=== PATIENT | female | born 1955 | race Caucasian/White ===

== ENCOUNTER 2021-04-02 21:22 | Observation (INO) | payer MEDICARE, OTHER ==
[2021-04-02] MEDS ORDERED: SODIUM CHLORIDE 0.9% 500 ML 500 ML IV STA (21:36)
[2021-04-02] MEDS ORDERED: ONDANSETRON 4 MG/2 ML VIAL IVP STA (21:36)
[2021-04-02] MEDS ORDERED: PANTOPRAZOLE 40 MG/10 ML VIAL IVP STA (21:36)
[2021-04-02 22:38] LABS: Basophils % (A) 0 %; Eosinophils # (A) 0.1 k/uL (0-0.7); Eosinophils % (A) 1 %; HCT 41.3 % (34.0-46.0); HGB 13.9 gm/dL (11.4-16.0); Lymphocytes # (A) 3.2 k/uL (1.0-4.8); Lymphocytes % (A) 43 %; MCH 32.5 pg (25.0-35.0); MCHC 33.8 g/dL (31.0-37.0); MCV 96.2 fL (80.0-100.0); Mean Platelet Volume 8.3; Monocytes # (A) 0.4 k/uL (0-1.0); Monocytes % (A) 6 %; Neutrophils # (A) 3.7 k/uL (1.3-7.7); Neutrophils % (A) 49 %; Platelet Count 254 k/uL (150-450); RBC 4.29 m/uL (3.80-5.40); RDW 13.3 % (11.5-15.5); WBC 7.6 k/uL (3.8-10.6)
[2021-04-02 22:52] LABS: ALT 36 U/L (4-34); AST 42 U/L (14-36); African American GFR (CKD) >90 (>60 ml/min/1.73 sqM); Albumin 4.3 g/dL (3.5-5.0); Alkaline Phosphatase 115 U/L (38-126); Anion Gap 11 mmol/L; Blood Urea Nitrogen 10 mg/dL (7-17); Calcium 9.3 mg/dL (8.4-10.2); Carbon Dioxide 19 mmol/L (22-30); Chloride 109 mmol/L (98-107); Glucose 119 mg/dL (74-99); Lipase 148 U/L (23-300); Magnesium 1.9 mg/dL (1.6-2.3); Non-African American GFR(CKD) >90 (>60 ml/min/1.73 sqM); Sodium 139 mmol/L (137-145); Total Bilirubin 0.3 mg/dL (0.2-1.3); Total Protein 7.1 g/dL (6.3-8.2)
[2021-04-02 22:54] LABS: Partial Thromboplastin Time 20.5 sec (22.0-30.0); Prothrombin Time 10.3 sec (9.0-12.0)
--- NOTE | 2021-04-02 23:08 | ED ---
GI Bleed HPI - General Chief complaint: GI Bleed Stated complaint: Rectal Bleeding Time Seen by Provider: 04/02/21 21:35 Source: patient, RN notes reviewed, old records reviewed Mode of arrival: ambulatory Limitations: no limitations - History of Present Illness Initial comments: This is a 66-year-old female to the ER today. Patient presents today for evaluation of GI bleed bright red blood per rectum. Patient has history of colon cancer polyps had multiple removed about a week ago and today presented with bright red blood per rectum tonight with stool. Patient feels otherwise normal no blood thinners no signs of syncope or near syncope no evidence of doesn't MD complaint: blood streaked stool, gross hematochezia -: hour(s) Radiation: none Severity scale (1-10): 5 Quality: painless Consistency: intermittent Improves with: none Worsens with: bowel movement Context: history of GI bleed Associated Symptoms: denies other symptoms Treatments Prior to Arrival: none - Related Data Home Medications Medication Instructions Recorded Confirmed Metoprolol Tartrate [Lopressor] 50 mg PO DAILY 04/18/15 04/02/21 Aspirin EC [Ecotrin Low Dose] 81 mg PO DAILY 04/02/21 04/02/21 Atorvastatin Calcium [Lipitor] 40 mg PO HS 04/02/21 04/02/21 Clopidogrel [Plavix] 75 mg PO DAILY 04/02/21 04/02/21 Omeprazole 40 mg PO HS 04/02/21 04/02/21 lisinopriL 40 mg PO HS 04/02/21 04/02/21 Previous Rx's Medication Instructions Recorded Nitroglycerin Sl Tabs [Nitrostat] 0.4 mg SUBLINGUAL Q5M PRN #25 tab 04/20/15 Allergies Allergy/AdvReac Type Severity Reaction Status Date / Time codeine Allergy Rash/Hives Verified 04/02/21 22:22 meloxicam [From Mobic] Allergy Unknown Verified 04/02/21 22:22 Review of Systems ROS Statement: Those systems with pertinent positive or pertinent negative responses have been documented in the HPI. ROS Other: All systems not noted in ROS Statement are negative. Past Medical History Past Medical History: GERD/Reflux, Hyperlipidemia, Hypertension, Osteoarthritis (OA) Additional Past Medical History / Comment(s): recent shoulder & back pain, hx. fatty liver History of Any Multi-Drug Resistant Organisms: None Reported Past Surgical History: Appendectomy, Back Surgery, Bowel Resection, Heart Catheterization, Hysterectomy Additional Past Surgical History / Comment(s): 04-19-15 heart cath with stent to lad and ballooned daig Past Anesthesia/Blood Transfusion Reactions: Postoperative Nausea & Vomiting (PONV) Past Psychological History: No Psychological Hx Reported Smoking Status: Never smoker Past Alcohol Use History: Occasional Past Drug Use History: None Reported - Past Family History Sister(s) Family Medical History: Blood Disorder General Exam Limitations: no limitations General appearance: alert, in no apparent distress Head exam: Present: atraumatic, normocephalic, normal inspection Eye exam: Present: normal appearance, PERRL, EOMI. Absent: scleral icterus, conjunctival injection, periorbital swelling ENT exam: Present: normal exam, mucous membranes moist Neck exam: Present: normal inspection. Absent: tenderness, meningismus, lymphadenopathy Respiratory exam: Present: normal lung sounds bilaterally. Absent: respiratory distress, wheezes, rales, rhonchi, stridor Cardiovascular Exam: Present: regular rate, normal rhythm, normal heart sounds. Absent: systolic murmur, diastolic murmur, rubs, gallop, clicks GI/Abdominal exam: Present: soft, normal bowel sounds. Absent: distended, tenderness, guarding, rebound, rigid Extremities exam: Present: normal inspection, full ROM, normal capillary refill. Absent: tenderness, pedal edema, joint swelling, calf tenderness Back exam: Present: normal inspection Neurological exam: Present: alert, oriented X3, CN II-XII intact Psychiatric exam: Present: normal affect, normal mood Skin exam: Present: warm, dry, intact, normal color. Absent: rash Course Vital Signs 04/02/21 21:24 Temperature 98.1 F Pulse Rate 124 H Respiratory 20 Rate Blood Pressure 149/93 O2 Sat by Pulse 96 Oximetry - Reevaluation(s) Reevaluation #1: 04/02/21 23:38 E record is reviewed Reevaluation #2: 04/02/21 23:39 Patient has no change in symptoms here in the ER although she did have bloody bowel movement here in the ER Reevaluation #3: 04/02/21 23:39 Patient is informed of results and questions are answered - Consultations Consultation #1: Spoke Dr. Aguilar who agrees to see the patient and is aware of this patient Consultation #2: (ICU, Dr. Crawford who will start patient on telemetry and the ICU stepdown Medical Decision Making - Medical Decision Making 66 female to the ER for evaluation of bright red blood per rectum with stool, GI bleed. Patient will be admitted for GI consultation evaluation - Lab Data Result diagrams: 04/02/21 22:21 04/02/21 22:21 Lab Results 04/02/21 04/02/21 04/02/21 Range/Units 22:21 22:21 22:21 WBC 7.6 (3.8-10.6) k/uL RBC 4.29 (3.80-5.40) m/uL Hgb 13.9 (11.4-16.0) gm/dL Hct 41.3 (34.0-46.0) % MCV 96.2 (80.0-100.0) fL MCH 32.5 (25.0-35.0) pg MCHC 33.8 (31.0-37.0) g/dL RDW 13.3 (11.5-15.5) % Plt Count 254 (150-450) k/uL MPV 8.3 Neutrophils % 49 % Lymphocytes % 43 % Monocytes % 6 % Eosinophils % 1 % Basophils % 0 % Neutrophils # 3.7 (1.3-7.7) k/uL Lymphocytes # 3.2 (1.0-4.8) k/uL Monocytes # 0.4 (0-1.0) k/uL Eosinophils # 0.1 (0-0.7) k/uL Basophils # 0.0 (0-0.2) k/uL PT 10.3 (9.0-12.0) sec INR 1.0 (<1.2) APTT 20.5 L (22.0-30.0) sec Sodium 139 (137-145) mmol/L Potassium 4.0 (3.5-5.1) mmol/L Chloride 109 H (98-107) mmol/L Carbon Dioxide 19 L (22-30) mmol/L Anion Gap 11 mmol/L BUN 10 (7-17) mg/dL Creatinine 0.52 (0.52-1.04) mg/dL Est GFR (CKD-EPI)AfAm >90 (>60 ml/min/1.73 sqM) Est GFR (CKD-EPI)NonAf >90 (>60 ml/min/1.73 sqM) Glucose 119 H (74-99) mg/dL Plasma Lactic Acid Mark (0.7-2.0) mmol/L Calcium 9.3 (8.4-10.2) mg/dL Magnesium 1.9 (1.6-2.3) mg/dL Total Bilirubin 0.3 (0.2-1.3) mg/dL AST 42 H (14-36) U/L ALT 36 H (4-34) U/L Alkaline Phosphatase 115 (38-126) U/L Troponin I (0.000-0.034) ng/mL Total Protein 7.1 (6.3-8.2) g/dL Albumin 4.3 (3.5-5.0) g/dL Lipase 148 (23-300) U/L Blood Type Blood Type Confirm Blood Type Recheck Bld Type Recheck Status Spec Expiration Date 04/02/21 04/02/21 04/02/21 Range/Units 22:21 22:21 22:21 WBC (3.8-10.6) k/uL RBC (3.80-5.40) m/uL Hgb (11.4-16.0) gm/dL Hct (34.0-46.0) % MCV (80.0-100.0) fL MCH (25.0-35.0) pg MCHC (31.0-37.0) g/dL RDW (11.5-15.5) % Plt Count (150-450) k/uL MPV Neutrophils % % Lymphocytes % % Monocytes % % Eosinophils % % Basophils % % Neutrophils # (1.3-7.7) k/uL Lymphocytes # (1.0-4.8) k/uL Monocytes # (0-1.0) k/uL Eosinophils # (0-0.7) k/uL Basophils # (0-0.2) k/uL PT (9.0-12.0) sec INR (<1.2) APTT (22.0-30.0) sec Sodium (137-145) mmol/L Potassium (3.5-5.1) mmol/L Chloride (98-107) mmol/L Carbon Dioxide (22-30) mmol/L Anion Gap mmol/L BUN (7-17) mg/dL Creatinine (0.52-1.04) mg/dL Est GFR (CKD-EPI)AfAm (>60 ml/min/1.73 sqM) Est GFR (CKD-EPI)NonAf (>60 ml/min/1.73 sqM) Glucose (74-99) mg/dL Plasma Lactic Acid Mark 2.0 (0.7-2.0) mmol/L Calcium (8.4-10.2) mg/dL Magnesium (1.6-2.3) mg/dL Total Bilirubin (0.2-1.3) mg/dL AST (14-36) U/L ALT (4-34) U/L Alkaline Phosphatase (38-126) U/L Troponin I <0.012 (0.000-0.034) ng/mL Total Protein (6.3-8.2) g/dL Albumin (3.5-5.0) g/dL Lipase (23-300) U/L Blood Type B Positive Blood Type Confirm Blood Type Recheck No Previous Record Bld Type Recheck Status CABO Indicated Spec Expiration Date 04/05/2021 - 232004/02/21 Range/Units 22:34 WBC (3.8-10.6) k/uL RBC (3.80-5.40) m/uL Hgb (11.4-16.0) gm/dL Hct (34.0-46.0) % MCV (80.0-100.0) fL MCH (25.0-35.0) pg MCHC (31.0-37.0) g/dL RDW (11.5-15.5) % Plt Count (150-450) k/uL MPV Neutrophils % % Lymphocytes % % Monocytes % % Eosinophils % % Basophils % % Neutrophils # (1.3-7.7) k/uL Lymphocytes # (1.0-4.8) k/uL Monocytes # (0-1.0) k/uL Eosinophils # (0-0.7) k/uL Basophils # (0-0.2) k/uL PT (9.0-12.0) sec INR (<1.2) APTT (22.0-30.0) sec Sodium (137-145) mmol/L Potassium (3.5-5.1) mmol/L Chloride (98-107) mmol/L Carbon Dioxide (22-30) mmol/L Anion Gap mmol/L BUN (7-17) mg/dL Creatinine (0.52-1.04) mg/dL Est GFR (CKD-EPI)AfAm (>60 ml/min/1.73 sqM) Est GFR (CKD-EPI)NonAf (>60 ml/min/1.73 sqM) Glucose (74-99) mg/dL Plasma Lactic Acid Mark (0.7-2.0) mmol/L Calcium (8.4-10.2) mg/dL Magnesium (1.6-2.3) mg/dL Total Bilirubin (0.2-1.3) mg/dL AST (14-36) U/L ALT (4-34) U/L Alkaline Phosphatase (38-126) U/L Troponin I (0.000-0.034) ng/mL Total Protein (6.3-8.2) g/dL Albumin (3.5-5.0) g/dL Lipase (23-300) U/L Blood Type Blood Type Confirm B Positive Blood Type Recheck Bld Type Recheck Status Spec Expiration Date - EKG Data -: EKG Interpreted by Me (EKG is sinus rhythm 98 LA 160 QRS 82 QTC 47) Disposition Clinical Impression: Lower gastrointestinal hemorrhage Disposition: ADMITTED IP TO THIS [facility] Condition: Fair Is patient prescribed a controlled substance at d/c from ED?: No Referrals: Frolyan Wilson MD [Primary Care Provider] - 1-2 days
[2021-04-02] MEDS ORDERED: NALOXONE 0.4 MG/ML 1 ML VIAL IV PRN (23:33)
[2021-04-02] MEDS ORDERED: MORPHINE SULFATE 4 MG/ML SYRINGE IV PRN (23:33)
[2021-04-02] MEDS ORDERED: ONDANSETRON 4 MG/2 ML VIAL IVP PRN (23:33)
[2021-04-03] MEDS: SODIUM CHLORIDE 0.9% 1,000 ML IV SCH ×3 (00:10→15:08)
[2021-04-03 08:21] LABS: Basophils % (A) 0 %; Eosinophils % (A) 1 %; HCT 37.8 % (34.0-46.0); HGB 12.4 gm/dL (11.4-16.0); Lymphocytes # (A) 2.2 k/uL (1.0-4.8); Lymphocytes % (A) 45 %; MCHC 32.8 g/dL (31.0-37.0); MCV 97.5 fL (80.0-100.0); Mean Platelet Volume 8.2; Monocytes # (A) 0.3 k/uL (0-1.0); Monocytes % (A) 7 %; Neutrophils # (A) 2.3 k/uL (1.3-7.7); Neutrophils % (A) 46 %; Platelet Count 210 k/uL (150-450); RBC 3.87 m/uL (3.80-5.40)
[2021-04-03 08:35] LABS: African American GFR (CKD) >90 (>60 ml/min/1.73 sqM); Anion Gap 9 mmol/L; Blood Urea Nitrogen 11 mg/dL (7-17); Calcium 8.9 mg/dL (8.4-10.2); Carbon Dioxide 22 mmol/L (22-30); Chloride 109 mmol/L (98-107); Glucose 124 mg/dL (74-99); Magnesium 1.8 mg/dL (1.6-2.3); Non-African American GFR(CKD) >90 (>60 ml/min/1.73 sqM); Phosphorus 3.7 mg/dL (2.5-4.5); Potassium 3.9 mmol/L (3.5-5.1); Sodium 140 mmol/L (137-145)
--- NOTE | 2021-04-03 09:02 | P.HPIM ---
History of Present Illness This is a pleasant 66 years old female with past medical history of hypertension, hyperlipidemia, GERD, osteoarthritis. Patient also with history of multiple colonic polyp and she undergoes colonoscopy every 3 years, as He was 2 days ago where 45 polyps were removed, patient after that she was asymptomatic and she was doing well but just yesterday she started noticed just have bloody bowel movement every 10-15 minutes which lasted for about 2-3 hours. No abdominal pain or nausea vomiting Her bleeding has is down significantly now but not resolved completely. She took Motrin 800 mg daily for 2 days for back pain 2 days ago also she is on aspirin and Plavix for 2 stents in her heart about 4 years ago. Her stand up comedian is Dr. Mccarthy Also she has an appointment with Dr. Herrera for cholecystectomy on 04/17 She denies smoking, alcohol or illicit drugs No dizziness or lightheadedness Vitas looks stable, heart rate slightly above 90 bpm. Labs showing unremarkable CBC with normal hemoglobin at 13.9. Normal INR is 1.0, BMP is unremarkable. Slightly elevated AST 42 and ALT 36 bilirubin is normal at 0.3. Troponin is negative less than 0.012. Lipase normal at 148. EKG showing normal sinus rhythm with no significant ST-T changes with grade at 98. Review of Systems CONSTITUTIONAL: No fever, no malaise, no fatigue. HEENT: No recent visual problems or hearing problems. Denied any sore throat. CARDIOVASCULAR: No orthopnea, PND, no palpitations, no syncope. PULMONARY: No shortness of breath, no cough, no hemoptysis. GASTROINTESTINAL: No diarrhea, no nausea, no vomiting, no abdominal pain. Normoactive bowel sounds. NEUROLOGICAL: No headaches, no weakness, no numbness. HEMATOLOGICAL: Denies any bleeding or petechiae. GENITOURINARY: Denies any burning micturition, frequency, or urgency. MUSCULOSKELETAL/RHEUMATOLOGICAL: Denies any joint pain, swelling, or any muscle pain. ENDOCRINE: Denies any polyuria or polydipsia. Past Medical History Past Medical History: GERD/Reflux, Hyperlipidemia, Hypertension, Osteoarthritis (OA) Additional Past Medical History / Comment(s): recent shoulder & back pain, hx. fatty liver History of Any Multi-Drug Resistant Organisms: None Reported Past Surgical History: Appendectomy, Back Surgery, Bowel Resection, Heart Catheterization, Hysterectomy Additional Past Surgical History / Comment(s): 04-19-15 heart cath with stent to lad and ballooned daig Past Anesthesia/Blood Transfusion Reactions: Postoperative Nausea & Vomiting (PONV) Past Psychological History: No Psychological Hx Reported Smoking Status: Never smoker Past Alcohol Use History: Occasional Past Drug Use History: None Reported - Past Family History Sister(s) Family Medical History: Blood Disorder Medications and Allergies Home Medications Medication Instructions Recorded Confirmed Type Metoprolol Tartrate [Lopressor] 50 mg PO DAILY 04/18/15 04/02/21 History Nitroglycerin Sl Tabs [Nitrostat] 0.4 mg SUBLINGUAL Q5M PRN #25 tab 04/20/15 04/02/21 Rx Aspirin EC [Ecotrin Low Dose] 81 mg PO DAILY 04/02/21 04/02/21 History Atorvastatin Calcium [Lipitor] 40 mg PO HS 04/02/21 04/02/21 History Clopidogrel [Plavix] 75 mg PO DAILY 04/02/21 04/02/21 History Omeprazole 40 mg PO HS 04/02/21 04/02/21 History lisinopriL 40 mg PO HS 04/02/21 04/02/21 History Allergies Allergy/AdvReac Type Severity Reaction Status Date / Time codeine Allergy Rash/Hives Verified 04/02/21 22:22 meloxicam [From Mobic] Allergy Unknown Verified 04/02/21 22:22 Physical Exam Vitals: Vital Signs Temp Pulse Resp BP Pulse Ox 04/03/21 06:57 96 20 115/59 95 04/03/21 04:00 98 20 95 04/03/21 02:00 89 20 105/64 95 04/03/21 00:10 95 20 110/65 95 04/02/21 21:24 98.1 F 124 H 20 149/93 96 Intake and Output 04/02/21 04/03/21 04/03/21 22:59 06:59 14:59 Other: Weight 86.183 kg GENERAL: The patient is alert and oriented x3, not in any acute distress. Well developed, well nourished. HEENT: Pupils are round and equally reacting to light. EOMI. No scleral icterus. No conjunctival pallor. Normocephalic, atraumatic. No pharyngeal erythema. No thyromegaly. CARDIOVASCULAR: S1 and S2 present. No murmurs, rubs, or gallops. PULMONARY: Chest is clear to auscultation, no wheezing or crackles. ABDOMEN: Soft, nontender, nondistended, normoactive bowel sounds. No palpable organomegaly. MUSCULOSKELETAL: No joint swelling or deformity. EXTREMITIES: No cyanosis, clubbing, or pedal edema. NEUROLOGICAL: Gross neurological examination did not reveal any focal deficits. SKIN: No rashes. No petechiae Results CBC & Chem 7: 04/03/21 07:54 04/03/21 07:54 Labs: Abnormal Lab Results - Last 24 Hours (Table) 04/02/21 04/02/21 Range/Units 22:21 22:21 APTT 20.5 L (22.0-30.0) sec Chloride 109 H (98-107) mmol/L Carbon Dioxide 19 L (22-30) mmol/L Glucose 119 H (74-99) mg/dL AST 42 H (14-36) U/L ALT 36 H (4-34) U/L Assessment and Plan Assessment: Acute GI bleed, secondary to NSAID use as well as dual antiplatelet after recent polypectomy History of colonic polyps status post polypectomy, 45 polyps removed recently History of coronary artery disease status post 2 stents, on aspirin and Plavix at home Hypertension Hyperlipidemia Chronic back pain and shoulder pain History of osteoarthritis History of GERD Plan: This is a pleasant 66 years old female who presents with GI bleed To hold Plavix Continue with Protonix GI consult Labs and medication were reviewed.. Continue same treatment. Continue with symptomatic treatment. Resume home medication. Monitor lytes and vitals. DVT and GI prophylaxis. Further recommendations depends on the clinical course of the patient DVT prophylaxis: No heparin due to GI bleed GI Prophylaxis: Ppi
--- NOTE | 2021-04-03 10:17 | CONS ---
CONSULTATION DATE OF DICTATION: 04/03/2021 REASON FOR CONSULTATION: Acute lower GI bleed. HISTORY OF PRESENT ILLNESS: The patient is a 66-year-old pleasant white female with history of familial polyposis syndrome. She underwent a routine colonoscopy last Wednesday at [facility] and was noted to have multiple small colon polyps throughout the entire colon. There were almost 45 polyps, two of which were fairly large in size: a 2 cm polyp in the transverse colon that was removed by snare polypectomy followed by Endoclip placement, and there was another 2 cm rectal polyp that was also removed by snare polypectomy. There were multiple small polyps measuring between 5 and 8 mm in size throughout the colon that were all removed. She went home and was discharged. Yesterday evening she called me, staying that she started having some bright red blood in the rectum. She had about three episodes and became a little bit dizzy. She was advised to come to the emergency room and was subsequently admitted to the intensive care unit. Through the night she had another three episodes of bowel movements, but she is feeling much better. The frequency and the intensity have decreased. Her initial hemoglobin was 13 and repeat CBC was 12.5 g/dL. She does have a family history of colon polyps. 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 The patient did have surgery done with right colon resection approximately 15 years ago for multiple colon polyps. PAST MEDICAL HISTORY: Hypertension, hyperlipidemia, gastroesophageal reflux disease, cardiac cath with stent placement, for which she is on aspirin and Plavix, currently on hold. MEDICATIONS: Medications at home: metoprolol, aspirin, Plavix, Lipitor, Prilosec, lisinopril. ALLERGIES: CODEINE and MELOXICAM. SOCIAL HISTORY: No smoking. No alcohol use. FAMILY HISTORY: Juvenile polyposis syndrome diagnosed on her sister. Strong family history of colon cancer diagnosed in her two first cousins, maternal aunt and maternal uncle in the 40s and 50s, respectively. PAST SURGICAL HISTORY: She had right colon resection several years ago, history of back surgery, cardiac catheterization and hysterectomy. REVIEW OF SYSTEMS: CARDIOPULMONARY: No chest pain. No shortness of breath. GENITOURINARY: No dysuria. No hematuria. MUSCULOSKELETAL: Unremarkable. SKIN: Unremarkable. ENDOCRINE: Unremarkable. PSYCHIATRY: Unremarkable. NEUROLOGY: Unremarkable. ENT/VISION: Unremarkable. CONSTITUTIONAL: No recent weight loss. No fever, chills, night sweats. PHYSICAL EXAMINATION: She appears comfortable. VITAL SIGNS: Stable. Blood pressure 115/59, pulse rate 96, temperature 98. HEENT EXAMINATION: Unremarkable. Conjunctivae pink. Sclerae anicteric. Oral cavity no lesions. NECK: No JVD. No lymph node enlargement. CHEST: Clear to auscultation. HEART: Regular rate and rhythm. ABDOMEN: Soft. Bowel sounds are positive. No organomegaly. EXTREMITIES: No pedal edema. SKIN: No rashes. NEURO: She is alert and oriented x3. No focal deficits. LABS: Labs done at the time of admission to the hospital: hemoglobin was 13.5, WBC and platelets are within normal limits. BUN and creatinine are 10 and 0.52, respectively. ALT and AST are 42 and , respectively. IMPRESSION: 1. Acute post-polypectomy lower gastrointestinal bleed. The patient had a colonoscopy 8 days ago at [facility] and was noted to have multiple colon polyps, total 45 in number, which were all removed. There was a large polyp measuring 2.5 cm in the transverse colon that was removed with snare polypectomy followed by Endoclip placement, and another large polyp in the rectum that was also removed by snare polypectomy. The rest of the polyps measured between 5 and 8 mm in size. It is likely that the polyp in the transverse colon or in the rectum is the source of bleeding. The patient is on aspirin and Plavix for history of coronary artery disease and stent placement, which is currently on hold since yesterday. Her initial hemoglobin was 13.9 and today it dropped to 12.4 g/dL. She continues to have ongoing bleeding but it appears to be gradually slowing down. She is hemodynamically stable. 2. History of juvenile polyposis syndrome with strong family history of colon cancer. RECOMMENDATIONS: 1. Clear liquid diet. 2. CBC q.6 hours. 3. I had a lengthy discussion with the patient regarding further management. At this time we will continue with conservative approach, but if she continues to have active bleeding, will consider repeat colonoscopy for control of bleeding. We will monitor her closely through the day and decide if she needs any endoscopic intervention. Will follow with you closely. Thank you for this consultation. MMODL / IJN: [id number] /
--- NOTE | 2021-04-03 10:46 | P.CRDCN ---
History of Present Illness History of present illness: HISTORY OF PRESENTING ILLNESS This is a pleasant 66-year-old female past medical history significant for area artery disease status post PCI 2014, hypertension, dyslipidemia and re cent colonoscopy. She follows in the office with Dr. Mccarthy. We have been asked to see in consultation for dual antiplatelet recommendations in the setting of acute GI bleeding. Presented to the hospital with symptoms of bright red blood per rectum status post colonoscopy and polypectomy last week. According to GI no she had almost 45 polyps. She is seen and examined sitting up in the emergency department in no acute distress. She denies symptoms of chest pain, shortness of breath, dizziness or palpitations. EKG reveals sinus mechanism heart rate of 98 with left axis deviation. Laboratory data reviewed, WBC 5, hemoglobin on admission 13.9 and repeat today 12.4, platelets 210, sodium 140, potassium 3.9, creatinine 0.51 and magnesium 1.3. Current daily cardiac medications include aspirin 81 mg daily, plavix 75 mg daily, Lopressor 50 mg daily, atorvastatin 40 mg daily and lisinopril 40 mg daily. REVIEW OF SYSTEMS At the time of my exam: CONSTITUTIONAL: Denies fever or chills. CARDIOVASCULAR: Denies chest pain, shortness of breath, orthopnea, PND or palpitations. RESPIRATORY: Denies cough. GASTROINTESTINAL: Denies abdominal pain, diarrhea, constipation, nausea or vomiting. MUSCULOSKELETAL: Denies myalgias. NEUROLOGIC: Denies numbness, tingling, headache or weakness. ENDOCRINE: Denies fatigue, weight change, polydipsia or polyurina. GENITOURINARY: Denies burning, hematuria or urgency with micturation. HEMATOLOGIC: Complains of bright red blood per rectum. PHYSICAL EXAMINATION Blood pressure 115/59 heart rate 96 afebrile and maintaining oxygen saturation on room air. CONSTITUTIONAL: No apparent distress. HEENT: Head is normocephalic. Pupils are equal, round. Sclerae anicteric. Mucous membranes of the mouth are moist. No JVD. No carotid bruit. CHEST EXAMINATION: Lungs are clear to auscultation. No chest wall tenderness is noted on palpation or with deep breathing. HEART EXAMINATION: Regular rate and rhythm. S1, S2 heard. No murmurs, gallops or rub. ABDOMEN: Soft, nontender. EXTREMITIES: 2+ peripheral pulses, no lower extremity edema and no calf tenderness. NEUROLOGIC EXAMINATION: Patient is awake, alert and oriented x3. ASSESSMENT Acute lower GI bleed status post polypectomy Coronary artery disease status post PCI maintained on dual antiplatelet therapy Hypertension Dyslipidemia PLAN Recommend complete discontinuation of Plavix at this time. Continue aspirin 81 mg daily. Decrease lisinopril to 20 mg daily. Medical management per primary care team and GI physicians. Follow-up with Dr. Mccarthy in the office in one to 2 weeks, we will follow along as needed. Thank you kindly for this consultation. Nurse Practitioner note has been reviewed, I agree with a documented findings and plan of care. Patient was seen and examined. Past Medical History Past Medical History: GERD/Reflux, Hyperlipidemia, Hypertension, Osteoarthritis (OA) Additional Past Medical History / Comment(s): recent shoulder & back pain, hx. fatty liver History of Any Multi-Drug Resistant Organisms: None Reported Past Surgical History: Appendectomy, Back Surgery, Bowel Resection, Heart Catheterization, Hysterectomy Additional Past Surgical History / Comment(s): 04-19-15 heart cath with stent to lad and ballooned daig Past Anesthesia/Blood Transfusion Reactions: Postoperative Nausea & Vomiting (PONV) Past Psychological History: No Psychological Hx Reported Smoking Status: Never smoker Past Alcohol Use History: Occasional Past Drug Use History: None Reported - Past Family History Sister(s) Family Medical History: Blood Disorder Medications and Allergies Home Medications Medication Instructions Recorded Confirmed Type Metoprolol Tartrate [Lopressor] 50 mg PO DAILY 04/18/15 04/02/21 History Nitroglycerin Sl Tabs [Nitrostat] 0.4 mg SUBLINGUAL Q5M PRN #25 tab 04/20/15 04/02/21 Rx Aspirin EC [Ecotrin Low Dose] 81 mg PO DAILY 04/02/21 04/02/21 History Atorvastatin Calcium [Lipitor] 40 mg PO HS 04/02/21 04/02/21 History Omeprazole 40 mg PO HS 04/02/21 04/02/21 History lisinopriL 20 mg PO HS #0 04/03/21 04/02/21 Rx Allergies Allergy/AdvReac Type Severity Reaction Status Date / Time codeine Allergy Rash/Hives Verified 04/02/21 22:22 meloxicam [From Mobic] Allergy Unknown Verified 04/02/21 22:22 Physical Exam Vitals: Vital Signs Temp Pulse Resp BP Pulse Ox 04/03/21 06:57 96 20 115/59 95 04/03/21 04:00 98 20 95 04/03/21 02:00 89 20 105/64 95 04/03/21 00:10 95 20 110/65 95 04/02/21 21:24 98.1 F 124 H 20 149/93 96 Intake and Output 04/02/21 04/03/21 04/03/21 22:59 06:59 14:59 Other: Weight 86.183 kg Results 04/03/21 07:54 04/03/21 07:54 Cardiac Enzymes 04/02/21 04/02/21 Range/Units 22:21 22:21 AST 42 H (14-36) U/L Troponin I <0.012 (0.000-0.034) ng/mL Coagulation 04/02/21 Range/Units 22:21 PT 10.3 (9.0-12.0) sec APTT 20.5 L (22.0-30.0) sec CBC 04/02/21 04/03/21 Range/Units 22:21 07:54 WBC 7.6 5.0 (3.8-10.6) k/uL RBC 4.29 3.87 (3.80-5.40) m/uL Hgb 13.9 12.4 (11.4-16.0) gm/dL Hct 41.3 37.8 (34.0-46.0) % Plt Count 254 210 (150-450) k/uL Comprehensive Metabolic Panel 04/02/21 04/03/21 Range/Units 22:21 07:54 Sodium 139 140 (137-145) mmol/L Potassium 4.0 3.9 (3.5-5.1) mmol/L Chloride 109 H 109 H (98-107) mmol/L Carbon Dioxide 19 L 22 (22-30) mmol/L BUN 10 11 (7-17) mg/dL Creatinine 0.52 0.51 L (0.52-1.04) mg/dL Glucose 119 H 124 H (74-99) mg/dL Calcium 9.3 8.9 (8.4-10.2) mg/dL AST 42 H (14-36) U/L ALT 36 H (4-34) U/L Alkaline Phosphatase 115 (38-126) U/L Total Protein 7.1 (6.3-8.2) g/dL Albumin 4.3 (3.5-5.0) g/dL Current Medications Generic Name Dose Route Start Last Admin Trade Name Freq PRN Reason Stop Dose Admin Aspirin 81 mg 04/04/21 09:00 Aspirin 81 Mg PO DAILY TERESITA Atorvastatin Calcium 40 mg 04/03/21 21:00 Atorvastatin 40 Mg Tab PO HS TERESITA Sodium Chloride 1,000 mls @ 75 mls/hr 04/02/21 23:45 04/03/21 00:10 Saline 0.9% IV 130 mls/hr .[id number] TERESITA Administration Metoprolol Tartrate 50 mg 04/03/21 09:45 Metoprolol Tartrate 50 Mg Tab PO DAILY TERESITA Morphine Sulfate 4 mg 04/02/21 23:33 Morphine Sulfate 4 Mg/Ml Syringe IV Q4HR PRN Severe Pain Naloxone HCl 0.2 mg 04/02/21 23:33 Naloxone 0.4 Mg/Ml 1 Ml Vial IV Q2M PRN Opioid Reversal Ondansetron HCl 4 mg 04/02/21 23:33 Ondansetron 4 Mg/2 Ml Vial IVP Q8HR PRN Nausea And Vomiting Pantoprazole Sodium 40 mg 04/03/21 09:00 Pantoprazole 40 Mg/10 Ml Vial IV DAILY TERESITA Intake and Output 04/02/21 04/03/21 04/03/21 22:59 06:59 14:59 Other: Weight 86.183 kg 04/03/21 07:54 04/03/21 07:54
[2021-04-03] MEDS: ACETAMINOPHEN TAB 325 MG TAB PO PRN ×2 (10:59→20:15)
[2021-04-03] MEDS: PANTOPRAZOLE 40 MG/10 ML VIAL IV SCH (11:00)
[2021-04-03] MEDS: lisinopriL 20 MG TAB PO SCH (11:02)
[2021-04-03] MEDS: METOPROLOL TARTRATE 50 MG TAB PO SCH (11:02)
[2021-04-03 14:19] LABS: Basophils % (A) 1 %; Eosinophils # (A) 0.1 k/uL (0-0.7); Eosinophils % (A) 1 %; HCT 37.3 % (34.0-46.0); HGB 12.4 gm/dL (11.4-16.0); Lymphocytes % (A) 41 %; MCH 32.2 pg (25.0-35.0); MCHC 33.1 g/dL (31.0-37.0); MCV 97.1 fL (80.0-100.0); Mean Platelet Volume 8.3; Monocytes # (A) 0.3 k/uL (0-1.0); Monocytes % (A) 6 %; Neutrophils # (A) 2.4 k/uL (1.3-7.7); Neutrophils % (A) 48 %; Platelet Count 228 k/uL (150-450); RBC 3.84 m/uL (3.80-5.40); WBC 4.9 k/uL (3.8-10.6)
[2021-04-03] MEDS ORDERED: ATORVASTATIN 40 MG TAB PO SCH (21:00)
[2021-04-04 02:30] LABS: Basophils % (A) 0 %; Eosinophils # (A) 0.1 k/uL (0-0.7); Eosinophils % (A) 2 %; HCT 35.4 % (34.0-46.0); HGB 11.7 gm/dL (11.4-16.0); Lymphocytes # (A) 2.2 k/uL (1.0-4.8); Lymphocytes % (A) 52 %; MCH 32.2 pg (25.0-35.0); MCHC 32.9 g/dL (31.0-37.0); Mean Platelet Volume 8.2; Monocytes # (A) 0.3 k/uL (0-1.0); Monocytes % (A) 6 %; Neutrophils # (A) 1.5 k/uL (1.3-7.7); Neutrophils % (A) 37 %; Platelet Count 195 k/uL (150-450); RBC 3.62 m/uL (3.80-5.40); RDW 13.1 % (11.5-15.5); WBC 4.2 k/uL (3.8-10.6)
[2021-04-04] MEDS: SODIUM CHLORIDE 0.9% 1,000 ML IV SCH (04:30)
[2021-04-04 07:20] LABS: Basophils % (A) 0 %; Eosinophils # (A) 0.1 k/uL (0-0.7); Eosinophils % (A) 2 %; HCT 35.5 % (34.0-46.0); HGB 11.7 gm/dL (11.4-16.0); Lymphocytes # (A) 2.2 k/uL (1.0-4.8); Lymphocytes % (A) 44 %; MCH 32.7 pg (25.0-35.0); MCV 99.2 fL (80.0-100.0); Mean Platelet Volume 9.6; Monocytes # (A) 0.3 k/uL (0-1.0); Monocytes % (A) 6 %; Neutrophils # (A) 2.2 k/uL (1.3-7.7); Neutrophils % (A) 44 %; Platelet Count 224 k/uL (150-450); RBC 3.58 m/uL (3.80-5.40); RDW 13.1 % (11.5-15.5)
[2021-04-04 07:41] LABS: Basophils % (A) 0 %; Eosinophils # (A) 0.1 k/uL (0-0.7); Eosinophils % (A) 2 %; HGB 12.4 gm/dL (11.4-16.0); Lymphocytes % (A) 47 %; MCH 32.8 pg (25.0-35.0); MCHC 34.4 g/dL (31.0-37.0); MCV 95.4 fL (80.0-100.0); Mean Platelet Volume 7.5; Monocytes # (A) 0.3 k/uL (0-1.0); Monocytes % (A) 8 %; Neutrophils # (A) 1.8 k/uL (1.3-7.7); Neutrophils % (A) 41 %; Platelet Count 237 k/uL (150-450); RBC 3.78 m/uL (3.80-5.40); WBC 4.3 k/uL (3.8-10.6)
[2021-04-04 08:47] VITALS: BP 131/76; RESP 17; TEMP 98
[2021-04-04] MEDS ORDERED: ASPIRIN 81 MG PO SCH (09:00)
[2021-04-04] MEDS: PANTOPRAZOLE 40 MG/10 ML VIAL IV SCH (09:02)
[2021-04-04] MEDS: lisinopriL 20 MG TAB PO SCH (09:02)
[2021-04-04] MEDS: METOPROLOL TARTRATE 50 MG TAB PO SCH (09:02)
[2021-04-04 11:16] VITALS: PULSE 65
--- NOTE | 2021-04-04 12:54 | P.PN ---
Subjective Progress Note Date: 04/04/21 Principal diagnosis: Lower GI bleed Patient is 66-year-old female who presented to the emergency department with complaints of rectal bleeding and blood in her stool for the last 2 days duration. She is status post cholecystectomy for multiple polyps approximately one week ago. On presentation she had a stable hemoglobin. she had been on Plavix and aspirin which both have been discontinued. She is not having any further bleeding. Hemoglobin has improved to 12.4 from 11.7 yesterday. She is tolerating a clear liquid diet. Denies any abdominal pain, nausea, or vomiting. No further bowel movements this morning. Objective - Vital Signs Vital signs: Vital Signs Temp 98.0 F 04/04/21 07:00 Pulse 69 04/04/21 07:00 Resp 17 04/04/21 07:00 BP 131/76 04/04/21 07:00 Pulse Ox 97 04/04/21 07:00 Intake & Output 04/03/21 04/04/21 04/04/21 18:59 06:59 18:59 Intake Total 222 Balance 222 Intake: Oral 222 Other: Voiding Method Toilet # Voids 2 2 - Exam General appearance: The patient is alert, oriented, appears in no acute distress. HET: Head is normocephalic and atraumatic. Conjunctiva pink. Sclera anicteric. Neck: Supple without lymphadenopathy. Abdomen: Soft, nontender, nondistended with bowel sounds. No guarding or rigidity. Extremities: Normal skin color and turgor. No pedal edema Skin: No rashes, no jaundice Neurological: No focal deficits. Alert and oriented 3. - Labs CBC & Chem 7: 04/04/21 07:05 04/03/21 07:54 Labs: Abnormal Lab Results - Last 24 Hours (Table) 04/03/21 04/04/21 04/04/21 Range/Units 19:59 02:13 07:05 RBC 3.58 L 3.62 L 3.78 L (3.80-5.40) m/uL Assessment and Plan (1) Lower gastrointestinal hemorrhage Narrative/Plan: 66-year-old female who presented to the emergency department with complaints of bright red blood per rectum and blood mixed in her stool who is status post multiple polypectomies one week ago with a fairly large size 2 cm polyp in the transverse colon that was removed by snare polypectomy followed by Endo Clip placement. Patient presented with acute post polypectomy lower gastrointestinal bleed. Patient had colonoscopy 8 days ago at [facility] was noted to have multiple colon polyps. Patient has history of juvenile polyposis syndrome with strong family history of colon cancer. Patient has had no further rectal bleeding or blood in her stool today. Hemoglobin remained stable and actually improved to 12.4 from 11.7. Denying any abdominal pain, nausea, or vomiting. Current Visit: Yes Status: Acute Code(s): K92.2 - GASTROINTESTINAL HEMORRHAGE, UNSPECIFIED SNOMED Code(s): 66689177 Plan: 1. Advance to regular diet. 2. Patient will be off her Plavix indefinitely per cardiology 3. Recommend holding aspirin 1 week 4. Patient to follow-up with gastroenterology on Wednesday for biopsy results Thank you for this consultation, patient may be discharged from gastroenterology standpoint Dr. Margaret Aguilar I agree with the dictator's note, documented as a scribe by Felipa Jenkins.
--- NOTE | 2021-04-05 01:47 | P.DS ---
Providers Date of admission: 04/02/21 23:36 Attending physician: Delmi Mustafa Consults: 04/02/21 23:35 Consult Physician Routine Consulting Provider: Alexa Aguilar Consult Reason/Comments: gib,known Do you want consulting provider notified?: Yes 04/03/21 08:57 Consult Physician Routine Consulting Provider: Mayank Mccarthy Consult Reason/Comments: does she need asa and plavix both Do you want consulting provider notified?: Yes Primary care physician: Froylan Wilson Hospital Course: Diagnoses: Acute GI bleed, secondary to NSAID use as well as dual antiplatelet after recent polypectomy History of colonic polyps status post polypectomy, 45 polyps removed recently History of coronary artery disease status post 2 stents, on aspirin and Plavix at home Hypertension Hyperlipidemia Chronic back pain and shoulder pain History of osteoarthritis History of GERD Hospital course This is a pleasant 66 years old female with past medical history of hypertension, hyperlipidemia, GERD, osteoarthritis. Patient also with history of multiple colonic polyp and she undergoes colonoscopy every 3 years, as He was 2 days ago where 45 polyps were removed, patient after that she was asymptomatic and she was doing well but just yesterday she started noticed just have bloody bowel movement every 10-15 minutes which lasted for about 2-3 hours. No abdominal pain or nausea vomiting Hemoglobin and blood pressure remained normal. Patient has been evaluated by GI and cardiology team who recommended to stop Plavix and not to resume its and discharge as her stents for more than one year ago. And to resume only aspirin. Today she was asymptomatic with no abdominal pain, no other complaint. No more bleeding per rectum and she tolerates diet. No chest pain or dyspnea. No fever Patient was cleared for discharge by GI team and to resume aspirin upon discharge lisinopril dose low at 40 down to 20 mg upon discharge and patient informed Problems and management plan were discussed with the patient and he verbalized understanding and acceptance Patient was found stable and can be discharged home however he needs follow-up as an outpatient. Patient was instructed to follow up with PCP Dr. Wilson within one week and patient agrees Also patient was instructed to follow up with Dr. Aguilar on 04/08 for biopsy results And to follow up with Dr. Mccarthy as an outpatient in 2 weeks and she agrees to call and make appointment Physical exam Gen: patient is a AAOx3, no distress CVS: S1-S2, RRR, no murmur Lungs: B/L CTA, no wheezing Abdomen: soft, no distention, no tenderness, positive bowel sounds Extremity: no leg edema or induration Time spent more than 35 minutes Patient Condition at Discharge: Fair Plan - Discharge Summary Discharge Rx Participant: No New Discharge Prescriptions: New lisinopriL [Zestril] 20 mg PO DAILY #30 tab Continue Metoprolol Tartrate [Lopressor] 50 mg PO DAILY Omeprazole 40 mg PO HS Aspirin EC [Ecotrin Low Dose] 81 mg PO DAILY Atorvastatin Calcium [Lipitor] 40 mg PO HS Discontinued Nitroglycerin Sl Tabs [Nitrostat] 0.4 mg SUBLINGUAL Q5M PRN #25 tab PRN Reason: Chest Pain lisinopriL 40 mg PO HS Clopidogrel [Plavix] 75 mg PO DAILY Discharge Medication List Metoprolol Tartrate [Lopressor] 50 mg PO DAILY 04/18/15 [History] Aspirin EC [Ecotrin Low Dose] 81 mg PO DAILY 04/02/21 [History] Atorvastatin Calcium [Lipitor] 40 mg PO HS 04/02/21 [History] Omeprazole 40 mg PO HS 04/02/21 [History] lisinopriL [Zestril] 20 mg PO DAILY #30 tab 04/04/21 [Rx] Follow up Appointment(s)/Referral(s): Mayank Mccarthy MD [STAFF PHYSICIAN] - 03/17/22 8:30 am Alexa Aguilar MD [STAFF PHYSICIAN] - 04/08/21 Froylan Wilson MD [Primary Care Provider] - 1-2 days Patient Instructions/Handouts: Colorectal Polyps (GEN), Gastric Polyps (GEN) Activity/Diet/Wound Care/Special Instructions: heart healthy diet activity is restricted till you see your doctor Hold aspirin for 1 week, and then resume it Discontinue taking Plavix altogether Discharge Disposition: HOME SELF-CARE
== END 2021-04-04 15:02 | disposition home or self-care (01) ==
LOC: EC 21:22 → 6NMEDSUR 23:36
PROVIDERS: ADMIT Hospitalist; ATTEND Hospitalist
DX: K92.2 Gastrointestinal hemorrhage, unspecified (principal); T39.395A Adverse effect of other nonsteroidal anti-inflammatory drugs [NSAID], initial encounter; Z86.010 Personal history of colon polyps; I10 Essential (primary) hypertension; E78.5 Hyperlipidemia, unspecified; G89.29 Other chronic pain; M54.9 Dorsalgia, unspecified; M25.519 Pain in unspecified shoulder; M19.90 Unspecified osteoarthritis, unspecified site; K21.9 Gastro-esophageal reflux disease without esophagitis; R74.01 Elevation of levels of liver transaminase levels; I25.10 Atherosclerotic heart disease of native coronary artery without angina pectoris; Z98.890 Other specified postprocedural states; K76.0 Fatty (change of) liver, not elsewhere classified; D12.6 Benign neoplasm of colon, unspecified; Z95.5 Presence of coronary angioplasty implant and graft; Z87.19 Personal history of other diseases of the digestive system; Z85.038 Personal history of other malignant neoplasm of large intestine; Z90.710 Acquired absence of both cervix and uterus; Z90.49 Acquired absence of other specified parts of digestive tract; Z79.899 Other long term (current) drug therapy; Z79.82 Long term (current) use of aspirin; Z79.02 Long term (current) use of antithrombotics/antiplatelets; Z88.8 Allergy status to other drugs, medicaments and biological substances; Z88.5 Allergy status to narcotic agent; Z83.2 Family history of diseases of the blood and blood-forming organs and certain disorders involving the immune mechanism; Z80.0 Family history of malignant neoplasm of digestive organs; Z83.71 Family history of colonic polyps
CPT/HCPCS: 96376 ×2; 96361 ×4; 96374; 96375; 99285; 36415; 93005; 86900; 86901; 80053; 80048; 83605; 83690; 83735 ×2; 84100; 84484; 85025 ×3; 85610; 85730; 86850; G0378 ×2; J2405; C9113 ×3

== ENCOUNTER 2021-05-30 06:28 | Day surgery (SDC) | payer MEDICARE ==
[2021-05-28 11:35] VITALS: BMI 35.9
--- NOTE | 2021-05-29 16:16 | P.GSHP ---
History of Present Illness H&P Date: 05/30/21 Chief Complaint: Biliary hyperkinesia/dyskinesia 66-year-old female seen in the office early April. Patient has had frequent pain right upper quadrant with radiation to the right shoulder blade. Symptoms associated with bloating and belching. Aggravated by fried foods. Ultrasound was normal. HIDA scan showed an elevated ejection fraction of 89%. Patient with history of multiple colon polyps/polyposis. History of previous right colectomy through a right lower quadrant transverse incision. Past Medical History Past Medical History: GERD/Reflux, Hyperlipidemia, Hypertension, Osteoarthritis (OA) Additional Past Medical History / Comment(s): recent shoulder & back pain, History of Any Multi-Drug Resistant Organisms: None Reported Past Surgical History: Appendectomy, Back Surgery, Bowel Resection, EPS, Heart Catheterization With Stent, Hysterectomy Additional Past Surgical History / Comment(s): 04-19-15 heart cath with stent to lad and ballooned, Past Anesthesia/Blood Transfusion Reactions: Postoperative Nausea & Vomiting (PONV) Date of Last Stent Placement:: 04/19/2015 Smoking Status: Never smoker - Past Family History Sister(s) Family Medical History: Deep Vein Thrombosis (DVT) Medications and Allergies Home Medications Medication Instructions Recorded Confirmed Type Metoprolol Tartrate [Lopressor] 50 mg PO DAILY 04/18/15 05/28/21 History Aspirin EC [Ecotrin Low Dose] 81 mg PO DAILY 04/02/21 05/28/21 History Atorvastatin Calcium [Lipitor] 40 mg PO HS 04/02/21 05/28/21 History Omeprazole 40 mg PO HS 04/02/21 05/28/21 History lisinopriL [Zestril] 20 mg PO DAILY #30 tab 04/04/21 05/28/21 Rx Allergies Allergy/AdvReac Type Severity Reaction Status Date / Time codeine Allergy Rash/Hives Verified 05/28/21 11:05 meloxicam [From Mobic] Allergy Nausea & Verified 05/28/21 11:06 Vomiting Surgical - Exam Physical exam: General: Well-developed, well-nourished HEENT: Normocephalic, sclerae nonicteric Abdomen: Prior scars noted, mild right upper quadrant tenderness, nondistended Extremities: No edema Neuro: Alert and oriented Assessment and Plan (1) Biliary dyskinesia Narrative/Plan: 66-year-old female with biliary colic type pain. HIDA scan results reviewed. Options discussed in detail with the patient. She is interested in proceeding with laparoscopic cholecystectomy. We'll schedule for laparoscopic cholecystectomy, possible open tomorrow. Risks of bleeding, infection, bile leak , bile duct injury, retained common bile duct stone, trocar injury, conversion to an open procedure, hernia, persistent abdominal pain, anesthesia related complications were reviewed. The patient understands and wishes to proceed. Status: Acute Code(s): K82.8 - OTHER SPECIFIED DISEASES OF GALLBLADDER SNOMED Code(s): 468517792
[~2021-05-30 06:28] MED LIST: ACETAMINOPHEN TAB 500 MG TAB PO PRN; DEXAMETHASONE SOD PHOSPHATE 4 MG/ML 1 ML VIAL IV ONE; HEPARIN SODIUM,PORCINE/PF 5,000 UNIT/0.5 ML SYRINGE SQ PRN; HYDROmorphone 0.5 MG/0.5 ML SYRINGE IVP PRN; ONDANSETRON 4 MG/2 ML VIAL IVP ONE
[2021-05-30] MEDS: LACTATED RINGERS 1,000 ML IV SCH ×2 (07:03→07:36)
[2021-05-30] MEDS ORDERED: MIDAZOLAM 2 MG/2 ML VIAL IVP ONE (07:16)
[2021-05-30] MEDS ORDERED: ROCURONIUM 10 MG/ML (5 ML VIAL) IV ONE (07:32)
[2021-05-30] MEDS ORDERED: PROPOFOL 10 MG/ML 20 ML VIAL IV ONE (07:32)
[2021-05-30] MEDS ORDERED: NEOSTIGMINE 1 MG/ML 10 ML VIAL ONE (07:32)
[2021-05-30] MEDS ORDERED: KETOROLAC 15 MG/ML 1 ML VIAL ONE (07:32)
[2021-05-30] MEDS ORDERED: GLYCOPYRROLATE 0.2 MG/ML 2 ML VIAL ONE (07:32)
[2021-05-30] MEDS ORDERED: MIDAZOLAM 2 MG/2 ML VIAL ONE (07:32)
[2021-05-30] MEDS ORDERED: SUCCINYLCHOLINE CHLORIDE 100 MG/5 ML SYR IV ONE (07:32)
[2021-05-30] MEDS ORDERED: LIDOCAINE 1% INJ 10MG/ML (20 ML MDV) ONE (07:32)
[2021-05-30] MEDS ORDERED: BUPIVACAINE (PF) 0.25% 30 ML VIAL SQ ONE ×2 (08:05)
[2021-05-30] MEDS ORDERED: traMADol 50 MG TAB PO STA (08:42)
[2021-05-30] MEDS ORDERED: ACETAMINOPHEN TAB 325 MG TAB PO SCH (08:45)
--- NOTE | 2021-05-30 08:45 | P.OP ---
Date of Procedure: 05/30/21 Procedure(s) Performed: PREOPERATIVE DIAGNOSIS: Biliary hyperkinesia POSTOPERATIVE DIAGNOSIS: Same PROCEDURE: Laparoscopic cholecystectomy SURGEON: Javier EBL: Minimal see anesthesia record ANESTHESIA: Gen. COMPLICATIONS: None OPERATIVE PROCEDURE: The patient was brought and placed on the operating room table in the supine position. The patient was placed under general anesthesia at that time. The abdomen was prepped and draped in the usual sterile fashion. A small curvilinear supraumbilical incision was made. The fascia was grasped with the Kartik forceps. The fascia was retracted anteriorly. The Veress needle was advanced into the peritoneal cavity. The saline drop test was normal. Insufflation took place up to 15 mmHg. A 5 mm optical trocar was advanced and the peritoneal cavity. 2 additional 5 mm trochars were placed in the right upper quadrant under direct visualization. A 12 mm trocar was advanced into the epigastric incision site. The patient was noted to have some adhesions between the omentum and the small bowel loops and the abdominal wall in the right lower quadrant. These were well away from our trocar entrance sites. The gallbladder was retracted superiorly and laterally. The peritoneum overlying the infundibulum was bluntly dissected. The patient's cystic duct was visualized. The junction between the cystic duct common and hepatic duct was identified. The critical view of safety was achieved after blunt dissection. The cystic duct was then divided after placement of 3 12 mm clips on the patient's side and one on the specimen side. The cystic artery was identified and clipped as well. A small vessel was seen along the gallbladder fossa and clipped as well. The gallbladder was then removed from the liver bed using electrocautery. The gallbladder was then removed from the epigastric trocar site with an Endo Catch bag. The gallbladder fossa was irrigated with saline. There was no evidence of any bleeding or biliary drainage seen. The fascia at the 12 millimeter site was closed using a [place] 0 Vicryl stitch. The trochars were then removed. The skin at all 4 sites was closed using a 4-0 Monocryl stitch. Skin glue was utilized on the incision sites. At the end of this procedure the sponge and needle counts were correct. DISPOSITION: Stable to the recovery room
[2021-05-30 08:49] VITALS: TEMP 97.8
[2021-05-30 08:52] VITALS: RESP 16
[2021-05-30] MEDS ORDERED: hydrALAZINE HCL 20 MG/ML 1 ML VIAL ONE (09:11)
[2021-05-30] MEDS ORDERED: hydrALAZINE HCL 20 MG/ML 1 ML VIAL IVP ONE (09:13)
[2021-05-30 10:22] VITALS: BP 163/72; PULSE 69
[2021-05-30] MEDS ORDERED: IBUPROFEN 600 MG TAB PO SCH (11:45)
== END 2021-05-30 11:26 | disposition home or self-care (01) ==
LOC: OR 06:28
PROVIDERS: ATTEND Surgery
DX: K81.1 Chronic cholecystitis (principal); K82.8 Other specified diseases of gallbladder; K21.9 Gastro-esophageal reflux disease without esophagitis; E78.5 Hyperlipidemia, unspecified; I10 Essential (primary) hypertension; M19.90 Unspecified osteoarthritis, unspecified site; Z79.899 Other long term (current) drug therapy
CPT/HCPCS: 88304; 47562; J2250; J0360; J1100; J2710; J0690; J2405; J2001; J1885; J0330; J2704; J1644

== ENCOUNTER 2021-10-31 10:12 | Day surgery (SDC) | payer MEDICARE ==
[2021-10-29 17:37] VITALS: BMI 34.5
[~2021-10-31 10:12] MED LIST changes: -ACETAMINOPHEN TAB 500 MG TAB PO PRN; -DEXAMETHASONE SOD PHOSPHATE 4 MG/ML 1 ML VIAL IV ONE; -HEPARIN SODIUM,PORCINE/PF 5,000 UNIT/0.5 ML SYRINGE SQ PRN; -HYDROmorphone 0.5 MG/0.5 ML SYRINGE IVP PRN; +LACTATED RINGERS 1,000 ML IV SCH; -ONDANSETRON 4 MG/2 ML VIAL IVP ONE
[2021-10-31 11:07] VITALS: RESP 20; TEMP 98.4
[2021-10-31] MEDS ORDERED: PROPOFOL 10 MG/ML 20 ML VIAL IV ONE (12:09)
[2021-10-31] MEDS ORDERED: LIDOCAINE 1% INJ 10MG/ML (20 ML MDV) ONE (12:09)
--- NOTE | 2021-10-31 12:49 | P.PCN ---
Date of Procedure: 10/31/21 Procedure(s) Performed: BRIEF HISTORY: Patient is a 66-year-old pleasant at female scheduled for an elective colonoscopy as a part of evaluation of juvenile polyposis syndrome diagnosed several years ago. She underwent right colectomy in 1979 for multiple colon polyps. Her last colonoscopy was in April 2021 and was noted to have 50 small polyps all measuring between 3-5 mm in size which were removed by snare polypectomy and biopsies revealed adenoma. She has strong family history of colon cancer. Her aunt at age age 50, pleasant at age 33 and another cousin at age 40. Her sister has difficult colectomy at age 5. Genetic analysis in one of her sisters was positive for genetic mutation consistent with juvenile polyposis syndrome. PROCEDURE PERFORMED: Colonoscopy snare polypectomy. PREOPERATIVE DIAGNOSIS: History of juvenile polyposis syndrome with multiple colon polyps. IV sedation per Anesthesia. PROCEDURE: After informed consent was obtained, the patient, was brought into the endoscopy unit. IV sedation was administered by Anesthesia under continuous monitoring. Digital rectal examination was normal. Initially the Olympus CF-160 flexible video colonoscope was then inserted in the rectum, gradually advanced into the right colon without any difficulty. Careful examination was performed. Anastomosis appeared normal. In the transverse colon and 15 polyps measuring between 3-5 in size removed by snare polypectomy. In the descending colon there were at least 25 polyps measuring between 3-5 mm in size removed by snare polypectomy. In the sigmoid colon there were 10 polyps measuring 3-5 mm in size removed by snare polypectomy. In the rectum there were 4 polyps measuring 3-4 mm in size removed by snare polypectomy. Scattered left-sided diverticulosis seen. Retroflexion was performed in the rectum and no lesions were seen. The patient tolerated the procedure well. IMPRESSION: 15 polyps in the transverse colon measuring between 3-5 mm in size, couple of which were 1 cm in size removed by snare polypectomy 25 small polyps in the descending colon measuring between 3-5 mm in size status post polypectomy Scattered polyps in the sigmoid colon measuring between 3-5 mm in sizes posterior polypectomy 4 polyps in the rectum measuring 3-4 mm in size status post polypectomy RECOMMENDATIONS: Findings of this examination were discussed with the patient as well as a family. She was advised to follow with the biopsy results and have a repeat Colonoscopy in 6 months..
[2021-10-31 13:20] VITALS: BP 146/85; PULSE 64
== END 2021-10-31 13:36 | disposition home or self-care (01) ==
LOC: ORWHC2ENDO 10:12
PROVIDERS: ATTEND Internal Medicine Gastroenterology
DX: D12.3 Benign neoplasm of transverse colon (principal); K63.5 Polyp of colon; K62.1 Rectal polyp; K57.30 Diverticulosis of large intestine without perforation or abscess without bleeding; Z90.49 Acquired absence of other specified parts of digestive tract; Z80.0 Family history of malignant neoplasm of digestive organs; Z98.0 Intestinal bypass and anastomosis status
CPT/HCPCS: 45385; 88305; J2001; J2704

== ENCOUNTER → 2022-05-22 | Day surgery (SDC) | payer MEDICARE ==
[2022-05-21 08:55] VITALS: BMI 5342.8
[~2022-05-22] MED LIST changes: +LIDOCAINE 1% (10MG/ML) FOR IV START INTRADERMA ONE; +PROPOFOL 10 MG/ML 20 ML VIAL IV ONE
[2022-05-22 09:52] VITALS: TEMP 96
--- NOTE | 2022-05-22 11:15 | P.PCN ---
Date of Procedure: 05/22/22 Procedure(s) Performed: BRIEF HISTORY: Patient is a 67-year-old pleasant white female scheduled for an elective colonoscopy as a part of evaluation of multiple colon polyps and family history of juvenile polyposis syndrome. Last colonoscopy was in October 2021 and was noted to have multiple small polyps, around 40-50 normal. Biopsies revealed adenoma. She has a family history of colon cancer in her aunt, studies 30 and a cousin at age 40. She also has prior history of. Hemicolectomy at age 50 of multiple colon polyps. PROCEDURE PERFORMED: Colonoscopy with snare polypectomy. PREOPERATIVE DIAGNOSIS: History of multiple colon polyps/family history of colon cancer and juvenile polyposis syndrome. IV sedation per Anesthesia. PROCEDURE: After informed consent was obtained, the patient, was brought into the endoscopy unit. IV sedation was administered by Anesthesia under continuous monitoring. Digital rectal examination was normal. Initially the Olympus CF-160 flexible video colonoscope was then inserted in the rectum, gradually advanced into the right colon where the anastomosis was visualized and appeared normal. In the ascending colon there was a 7 small polyps measuring 3-5 mm in size ago by snare polypectomy. In the transverse colon there were 7 polyps measuring between 3-5 mm in size removed by snare polypectomy. In the descending colon there was a 3 mm 3 polyps removed by snare polypectomy. In the sigmoid colon there were 3 polyps measuring 3 mm in size removed by snare polypectomy. The rectum appeared normal. sigmoid diverticulosis seen. Retroflexion was performed in the rectum and no lesions were seen. The patient tolerated the procedure well. IMPRESSION: 7 polyps in the ascending colon measuring between 3-5 mm in size removed by snare polypectomy 7 polyps in the transverse colon measuring between 3-4 mm in size removed by snare polypectomy 3 polyps in the sigmoid colon measuring 3 mm in size removed by snare polypectomy 3 polyps in the descending colon to 4 mm in size removed by snare polypectomy Scattered sigmoid diverticulosis RECOMMENDATIONS: Findings of this examination were discussed with the patient as well as her family. She was advised to follow with the biopsy results and will plan a repeat colonoscopy in one year..
[2022-05-22 11:33] VITALS: BP 160/89; PULSE 63; RESP 18
[2022-05-22 13:16] LABS: Appearance,Urine Clear (Clear); Bilirubin,Urine Negative (Negative); Blood,Urine Large (Negative); Color,Urine Yellow; Glucose,Urine (UA) Negative (Negative); Ketones,Urine Negative (Negative); Leukocyte Esterase,Urine Moderate (Negative); Mucus,Urine Rare /hpf; Nitrite,Urine Negative (Negative); PH, Urine 7.5 (5.0-8.0); Protein,Urine 1+ (Negative); RBC,Urine 69 /hpf (0-5); Specific Gravity,Urine 1.012 (1.001-1.035); Squamous Epithelial Cell,Urine <1 /hpf (0-4); Urobilinogen,Urine <2.0 mg/dL (<2.0); WBC,Urine 52 /hpf (0-5)
== END ==
LOC: ORWHC2ENDO 08:55
PROVIDERS: ATTEND Internal Medicine Gastroenterology
DX: Z12.11 Encounter for screening for malignant neoplasm of colon (principal); D12.2 Benign neoplasm of ascending colon; D12.4 Benign neoplasm of descending colon; I25.10 Atherosclerotic heart disease of native coronary artery without angina pectoris; I10 Essential (primary) hypertension; E78.5 Hyperlipidemia, unspecified; Z95.5 Presence of coronary angioplasty implant and graft; K21.9 Gastro-esophageal reflux disease without esophagitis; Z90.49 Acquired absence of other specified parts of digestive tract; Z79.899 Other long term (current) drug therapy; Z88.5 Allergy status to narcotic agent; Z86.010 Personal history of colon polyps; Z80.0 Family history of malignant neoplasm of digestive organs
CPT/HCPCS: 88305; 81001; 87086; 87077; 87186; 45385; J2704

== ENCOUNTER 2023-06-18 11:03 | Day surgery (SDC) | payer MEDICARE ==
[2023-06-17 08:55] VITALS: BMI 32.0
[~2023-06-18 11:03] MED LIST changes: -LIDOCAINE 1% (10MG/ML) FOR IV START INTRADERMA ONE; -PROPOFOL 10 MG/ML 20 ML VIAL IV ONE
[2023-06-18] MEDS ORDERED: LACTATED RINGERS 1,000 ML IV ONE (12:51)
[2023-06-18] MEDS ORDERED: ONDANSETRON 4 MG/2 ML VIAL ONE (13:02)
[2023-06-18] MEDS ORDERED: ONDANSETRON 4 MG/2 ML VIAL IVP ONE (13:05)
[2023-06-18 13:17] VITALS: TEMP 97.8
[2023-06-18] MEDS ORDERED: PROPOFOL 10 MG/ML 20 ML VIAL IV ONE (13:35)
[2023-06-18] MEDS ORDERED: LIDOCAINE 1% INJ 10MG/ML (20 ML MDV) ONE (13:35)
--- NOTE | 2023-06-18 14:19 | P.PCN ---
Date of Procedure: 06/18/23 Procedure(s) Performed: BRIEF HISTORY: Patient is a 68-year-old pleasant white female scheduled for an elective colonoscopy as a part of surveillance of colon polyps and family history of juvenile polyposis syndrome. Last colonoscopy was in May 2022 and was noted to have multiple colon polyps in the range of 50-16 normal. She has history of right hemicolectomy as a teenager. She has family history of colon cancer in her aunt at age 30 and cousin at age 40. PROCEDURE PERFORMED: Colonoscopy with biopsy and snare polypectomy. PREOPERATIVE DIAGNOSIS: History of multiple colon polyps and family history of juvenile polyposis syndrome.. IV sedation per Anesthesia. PROCEDURE: After informed consent was obtained, the patient, was brought into the endoscopy unit. IV sedation was administered by Anesthesia under continuous monitoring. Digital rectal examination was normal. Initially the Olympus CF-160 flexible video colonoscope was then inserted in the rectum, gradually advanced into the right colon with a liquid anastomosis was visualized and appeared normal. In the ascending colon there were 4 polyps measuring between 3-4 mm in size that were removed by cold biopsy. 3 polyps in the Transverse colon polyps measuring 3-5 in size all of which were removed by snare polypectomy and biopsy respectively. One polyp in the proximal transverse colon measured 1.5 cm broad- based that was removed by piecemeal snare polypectomy and complete polypectomy accomplished. in the descending colon there were total of 10 polyps that were removed by cold biopsy and snare polypectomy. In the sigmoid: There were 5 polyps all measuring between 3-4 mm in size removed by cold biopsy. In the rect um there were 2 polyps measuring between 2-3 mm in size removed by biopsy. Retroflexion was performed in the rectum and no lesions were seen. The patient tolerated the procedure well. IMPRESSION: 4 polyps in the ascending colon measuring between 3-4 mm in size status post cold biopsy 3 polyps in the transverse colon, largest measuring 1.5 cm in size status post snare polypectomy 10 polyps in the descending colon measuring between 3-4 mm in size status post cold biopsy and snare polypectomy 5 polyps in the sigmoid colon measuring between 3-4 mm in size status post cold biopsy 2 polyps in the rectum measuring between 3-4 mm in size status post cold biopsy RECOMMENDATIONS: Findings of this examination were discussed with the patient as well as a family.. she was advised to follow with the biopsy sites. If the biopsy reveals adenoma she can have a repeat colonoscopy in one year
[2023-06-18 14:51] VITALS: BP 125/69; PULSE 62; RESP 16
== END 2023-06-18 14:55 | disposition home or self-care (01) ==
LOC: ORWHC2ENDO 11:03
PROVIDERS: ATTEND Internal Medicine Gastroenterology
DX: Z12.11 Encounter for screening for malignant neoplasm of colon (principal); D12.3 Benign neoplasm of transverse colon; D12.4 Benign neoplasm of descending colon; K62.1 Rectal polyp; I10 Essential (primary) hypertension; E78.5 Hyperlipidemia, unspecified; K21.9 Gastro-esophageal reflux disease without esophagitis; Z79.82 Long term (current) use of aspirin; Z88.6 Allergy status to analgesic agent; Z88.5 Allergy status to narcotic agent; Z95.0 Presence of cardiac pacemaker; Z86.010 Personal history of colon polyps; Z98.890 Other specified postprocedural states; Z80.0 Family history of malignant neoplasm of digestive organs; Z79.899 Other long term (current) drug therapy
CPT/HCPCS: 88305; 45380; 45385; J2405; J2001; J2704

== ENCOUNTER → 2023-12-24 | Day surgery (SDC) | payer MEDICARE ==
[2023-12-20 10:18] VITALS: BMI 34.0
[~2023-12-24] MED LIST changes: -LACTATED RINGERS 1,000 ML IV SCH; +PROPOFOL 10 MG/ML 20 ML VIAL IV ONE
[2023-12-24 13:24] VITALS: RESP 16; TEMP 97.7
[2023-12-24] MEDS: LACTATED RINGERS 1,000 ML IV SCH (13:24)
--- NOTE | 2023-12-24 14:27 | P.PCN ---
Date of Procedure: 12/24/23 Procedure(s) Performed: BRIEF HISTORY: Patient is a 68-year-old pleasant pleasant white female scheduled for an elective colonoscopy as a part of surveillance of family history of juvenile polyposis syndrome. Patient also had multiple colon polyps over the last several years. She underwent right hemicolectomy as a teenager for large colon polyps in the right colon. Her last colonoscopy was in June 2023 and was noted to have several small polyps throughout the colon. PROCEDURE PERFORMED: Colonoscopy with biopsy. PREOPERATIVE DIAGNOSIS: History of colon polyps and family history of diminutive polyposis in the. IV sedation per Anesthesia. PROCEDURE: After informed consent was obtained, the patient, was brought into the endoscopy unit. IV sedation was administered by Anesthesia under continuous monitoring. Digital rectal examination was normal. Initially the Olympus CF-160 flexible video colonoscope was then inserted in the rectum, gradually advanced into the right colon. Ileocolic anastomosis was normal. In the transverse colon there were 4 polyps measuring between 3 to 4 mm in size removed by cold biopsy. In the descending colon there were 5 polyps measuring between 3 to 4 mm in size removed by cold biopsy. In the sigmoid colon there were 2 polyps measuring between 3 to 4 mm in size removed by cold biopsy. Scattered sigmoid diverticulosis seen. Rest of the, sigmoid colon, and rectum appeared normal. Retroflexion was performed in the rectum and no lesions were seen. The patient tolerated the procedure well. IMPRESSION: 4 polyps in the transverse colon measuring between 3 to 4 mm in size status post cold biopsy 5 polyps in the descending colon measuring between 3 to 4 mm in size status post cold biopsy 2 polyps in the sigmoid colon measuring between 3 to 4 mm in size s/p cold biopsy Scattered sigmoid diverticulosis RECOMMENDATIONS: Findings of this examination were discussed with the patient as well as her family. She was advised to follow-up with the biopsy results. Recommend repeat colonoscopy in 6 months to 1 year..
[2023-12-24 15:18] VITALS: BP 154/81; PULSE 68
== END ==
LOC: ORWHC2ENDO 11:46
PROVIDERS: ATTEND Internal Medicine Gastroenterology
DX: Z12.11 Encounter for screening for malignant neoplasm of colon (principal); K63.5 Polyp of colon; K57.30 Diverticulosis of large intestine without perforation or abscess without bleeding; I10 Essential (primary) hypertension; E78.5 Hyperlipidemia, unspecified; Z80.0 Family history of malignant neoplasm of digestive organs; Z86.010 Personal history of colon polyps; Z88.5 Allergy status to narcotic agent; Z90.710 Acquired absence of both cervix and uterus; Z98.890 Other specified postprocedural states; Z79.899 Other long term (current) drug therapy
CPT/HCPCS: 88305; 45380; J2704

== ENCOUNTER 2024-11-10 11:12 | Day surgery (SDC) | payer MEDICARE ==
[2024-11-08 10:10] VITALS: BMI 33.0
[~2024-11-10 11:12] MED LIST changes: +LIDOCAINE 1% (10MG/ML) FOR IV START INTRADERMA PRN; -PROPOFOL 10 MG/ML 20 ML VIAL IV ONE
[2024-11-10] MEDS: IV FLUID CONTINUATION 1,000 ML IV ONE ×2 (12:57→13:24)
[2024-11-10] MEDS: LACTATED RINGERS 1,000 ML IV SCH (13:06)
[2024-11-10] MEDS ORDERED: PROPOFOL 10 MG/ML 20 ML VIAL IV ONE (13:26)
--- NOTE | 2024-11-10 13:53 | P.PCN ---
Date of Procedure: 11/10/24 Procedure(s) Performed: BRIEF HISTORY: Patient is a 69 [id number] pleasant white female scheduled for an elective colonoscopy as a part of surveillance of family history of juvenile polyposis syndrome. The patient also has multiple colon polyps and underwent right hemicolectomy as a teenager. She has been having colonoscopy almost every 6 months/yearly basis and is noted to have multiple colon polyps the last one was done in October 2023. PROCEDURE PERFORMED: Colonoscopy with snare polypectomy.. PREOPERATIVE DIAGNOSIS: History of multiple colon polyps and family history of juvenile polyposis syndrome. IV sedation per Anesthesia. PROCEDURE: After informed consent was obtained, the patient, was brought into the endoscopy unit. IV sedation was administered by Anesthesia under continuous monitoring. Digital rectal examination was normal. Initially the Olympus CF-160 flexible video colonoscope was then inserted in the rectum, gradually advanced into the right colon. Without any difficulty. Careful examination was performed as the scope was gradually being withdrawn. Anastomosis was located in the right colon that appeared normal. In the ascending colon there were 12 polyps all measuring between 3 to 4 mm in size removed by cold snare polypectomy. In the hepatic flexure there were 9 polyps measuring between 3 to 5 mm in size removed by snare polypectomy. In the transverse colon there were 15 polyps measuring between 3 to 5 mm in size removed by snare polypectomy. In the d escending colon there were about 10 polyps measuring 3 to 4 mm in size removed by snare polypectomy. In the sigmoid colon there were 3 polyps measuring 3 to 4 mm in size removed by snare polypectomy. Moderate sigmoid diverticulosis seen. In the rectum there was a 1 there was 1 polyp that was removed by snare polypectomy measuring 3 mm in size. . Retroflexion was performed in the rectum and no lesions were seen. The patient tolerated the procedure well. IMPRESSION: 12 polyps in the ascending colon measuring between 3 to 4 mm in size status post polypectomy 9 polyps in the hepatic flexure measuring between 3 to 5 mm in size removed by snare polypectomy 15 polyps in the descending colon measuring between 3 to 5 mm in size removed by snare polypectomy 10 polyps in the descending colon measuring between 3 to 5 mm in size removed by snare polypectomy 3 polyps in the sigmoid colon measuring 3 to 5 mm in size removed by snare polypectomy 3 mm rectal polyp status post polypectomy Scattered sigmoid diverticulosis. RECOMMENDATIONS: Findings of this examination were discussed with the patient as well as her family. She was advised to follow-up with the biopsy results. Will follow with the biopsy results and plan a repeat colonoscopy in 6 months..
[2024-11-10 14:03] VITALS: TEMP 97
[2024-11-10 14:14] VITALS: BP 116/60; PULSE 70; RESP 16
== END 2024-11-10 14:24 | disposition home or self-care (01) ==
LOC: ORWHC2ENDO 11:12
PROVIDERS: ATTEND Internal Medicine Gastroenterology
DX: Z12.11 Encounter for screening for malignant neoplasm of colon (principal); D12.4 Benign neoplasm of descending colon; D12.2 Benign neoplasm of ascending colon; D12.3 Benign neoplasm of transverse colon; D12.8 Benign neoplasm of rectum; K57.30 Diverticulosis of large intestine without perforation or abscess without bleeding; I10 Essential (primary) hypertension; E78.5 Hyperlipidemia, unspecified; M19.90 Unspecified osteoarthritis, unspecified site; F17.200 Nicotine dependence, unspecified, uncomplicated; Z88.5 Allergy status to narcotic agent; Z88.6 Allergy status to analgesic agent; Z86.0100 Personal history of colon polyps, unspecified; Z88.8 Allergy status to other drugs, medicaments and biological substances
CPT/HCPCS: 88305; 45385; J2704